=== PATIENT | male | born 1990 | race Caucasian/White ===

== ENCOUNTER 2020-06-29 09:53 | Emergency (ER) | payer BC, SELFPAY ==
--- NOTE | 2020-06-29 09:58 | ED.GENADULT ---
HPI - General Adult General Chief complaint: Skin/Abscess/Foreign Body Stated complaint: Rash Time Seen by Provider: 06/29/20 09:58 Source: patient Mode of arrival: ambulatory Limitations: no limitations History of Present Illness HPI narrative: 29-year-old male patient presents to the [facility] with complaints of a rash for the past month. Patient states he has a round area to the head that is slightly itchy and sore. Patient also has various surgical areas noted to bilateral arms, abdomen, right flank and bilateral ankles. Patient states he does have a dog that he sleeps with. Patient does admit to heroin IV use and last used about 2 weeks ago. Patient denies fevers, body aches or chills. Denies chest pain or shortness of breath that he is aware of. Denies using any type of [id number] ointments for the rash. Related Data Allergies Allergy/AdvReac Type Severity Reaction Status Date / Time No Known Allergies Allergy Unverified 10/28/14 14:10 Review of Systems Review of Systems: Narrative: CONSTITUTIONAL: Denies fever, chills, or sweats. EYES: Denies visual changes, redness, or discharge. ENT: Denies rhinorrhea, congestion, sore throat, or otalgia. CARDIOVASCULAR: Denies chest pain, palpitations, or edema. RESPIRATORY: Denies cough or dyspnea. GASTROINTESTINAL: Denies abdominal pain, nausea, vomiting, or diarrhea. GENITOURINARY: Denies dysuria or hematuria. SKIN: Positive rash with itching to scalp, bilateral arms, right flank, trunk and bilateral lower extremities x1 month MUSCULOSKELETAL: Denies back pain, joint pain, or myalgia. NEUROLOGIC: Denies headache, numbness, or weakness. PSYCHIATRIC: Denies anxiety or depression. [facility] Past Medical History Medical History (Updated 06/29/20 @ 10:39 by BERTRAND Noriega) Opioid use Substance abuse IV heroin Comments At the time of my signature I agree with nursing past medical history, surgical, social, and family history. There is no relevant family history pertinent to the presenting complaint. Exam Narrative: Exam Narrative: GENERAL: Well-appearing, well-nourished, and in no acute distress. HEAD: Normocephalic, atraumatic. EYES: PERRLA and EOMI. ENT: Nares clear, no rhinorrhea or epistaxis. Mucous membranes moist. NECK: Supple. No lymphadenopathy CHEST: Clear to auscultation. No respiratory distress. HEART: Regular rate and rhythm. No murmur heard. Normal peripheral pulses. ABDOMEN: Soft, nontender, nondistended, normal active bowel sounds. EXTREMITIES: Normal range of motion. No edema. SKIN: Warm, dry, patient has a circular erythemic rash with clearing in the middle to the right parietal area. There is no open wounds or discharge. Patient also has several other circular erythemic areas to various parts of the body some are scabbed over looks like they have been picked that. No discharge present. NEURO: No focal deficits. Alert and oriented x3. Course Vital Signs Vital signs: Vital Signs Temperature 35.8 C L 06/29/20 10:08 Pulse Rate 92 06/29/20 10:08 Respiratory Rate 16 06/29/20 10:08 Blood Pressure 126/75 06/29/20 10:08 Pulse Oximetry 99 06/29/20 10:08 Temperature 35.8 C L 06/29/20 10:08 Pulse Rate 92 06/29/20 10:08 Respiratory Rate 16 06/29/20 10:08 Blood Pressure 126/75 06/29/20 10:08 Pulse Oximetry 99 06/29/20 10:08 Vital signs reviewed Medical Decision Making Differential Diagnosis Differential Diagnosis: Differential diagnosis: Contact dermatitis, poison mayo, poison sumac, psoriasis, eczema, allergic reaction, drug reaction, scabies, tinea syphilis, lung disease, viral exanthema, pityriasis, erythema multiforme. Discussed with patient that we are going to go ahead and treat him for a fungal infection today as well as a possible staph infection because it does appear that some of the areas could be infected. Discussed with patient that we will give him an oral antifungal and an antifungal shampoo for the fu
[2020-06-29 10:08] VITALS: BP 126/75; PULSE 92; RESP 16; TEMP 35.8; O2SAT 99
== END 2020-06-29 10:45 | disposition home or self-care (01) ==
PROVIDERS: Emergency Provider Nurse Practitioner Family
DX: B35.0 Tinea barbae and tinea capitis (principal); B35.4 Tinea corporis
CPT/HCPCS: 99213; G0463

== ENCOUNTER 2021-03-07 19:51 | Emergency (ER) | payer BC, SELFPAY ==
--- NOTE | 2021-03-07 20:23 | ED.URI ---
HPI - URI/Sore Throat General Chief Complaint: Upper Respiratory Infection Stated Complaint: cough Time Seen by Provider: 03/07/21 20:17 Source: patient and RN notes reviewed Mode of arrival: ambulatory Limitations: no limitations History of Present Illness HPI Narrative: Patient presents today complaining of a 2-day history of productive cough, rhinorrhea, congestion, headache, sore throat, with occasional duration. He currently rates his sore throat 6/10 and has tried no medication for symptoms prior to arrival. No history of asthma or COPD. Patient does smoke. He has not been vaccinated against influenza or COVID-19. MD elicited complaint: cough and sore throat Related Data Home Medications Medication Instructions Recorded Confirmed No Home Medications 03/07/21 03/07/21 Allergies Allergy/AdvReac Type Severity Reaction Status Date / Time No Known Allergies Allergy Verified 03/07/21 20:16 Review of Systems Review of Systems: CONSTITUTIONAL: Denies body aches, fever, chills, or sweats. EYES: Denies visual changes, redness, or discharge. ENT: Denies otalgia.+ Rhinorrhea, congestion, sore throat CARDIOVASCULAR: Denies chest pain, palpitations, or edema. RESPIRATORY: + Cough, occasional shortness of breath GASTROINTESTINAL: Denies abdominal pain, nausea, vomiting, or diarrhea. GENITOURINARY: Denies dysuria or hematuria. SKIN: Denies rash, itching, or wounds. MUSCULOSKELETAL: Denies back pain, joint pain, or myalgia. NEUROLOGIC: Denies numbness, tingling, or weakness.+ Headache PSYCH: Denies depression or anxiety. [facility] Past Medical History Medical History Opioid use Substance abuse IV heroin Comments At time of signature, I have reviewed and agree with nursing past medical, surgical, social and family history unless otherwise noted. Please see nursing chart for further information. There is no relevant family history pertinent to the presenting complaint Exam Narrative: GENERAL: Well-appearing, well-nourished, and in no acute distress. HEAD: Normocephalic, atraumatic. EYES: EOMI. No redness or drainage. Conjunctivae normal. ENT: Mucous membranes pink and moist. Nares clear. No rhinorrhea. TMs normal bilaterally. Throat erythematous without edema or exudate. Uvula midline. NECK: Normal AROM. Supple. No lymphadenopathy. CHEST: No respiratory distress. Clear to auscultation. HEART: Regular rate and rhythm. No murmur appreciated. Normal peripheral pulses. EXTREMITIES: Normal range of motion. No edema. SKIN: Warm, dry, no rash. Capillary refill normal. Normal skin turgor. NEURO: No focal deficits. Alert and oriented x3. Gait steady. PSYCH: Normal affect. No signs of depression or anxiety. Course Vital Signs Vital signs: Vital Signs Temperature 97.4 F L 03/07/21 20:24 Pulse Rate 99 03/07/21 20:24 Respiratory Rate 16 03/07/21 20:24 Blood Pressure 128/77 03/07/21 20:24 Pulse Oximetry 98 03/07/21 20:24 Temperature 97.4 F L 03/07/21 20:24 Pulse Rate 99 03/07/21 20:24 Respiratory Rate 16 03/07/21 20:24 Blood Pressure 128/77 03/07/21 20:24 Pulse Oximetry 98 03/07/21 20:24 Reviewed. Pt has been instructed to follow up with her PCP regarding her elevated blood pressure today. MDM - URI/Sore Throat Differential Diagnosis Differential diagnosis: Likely upper respiratory infection, viral infection, bronchitis, pharyngitis and other (Strep throat) Lab Data Attestation: I reviewed the patient's lab results. Labs: Strep Screen Presumptive Negative *(Reference Range: Negative)* Critical Care Time Critical Care Time Critical Care Time: No Discharge Plan Discharge Clinical Impression: Bronchitis Upper respiratory infection Qualifiers: URI type: unspecified URI Qualified Code(s): J06.9 - Acute upper respiratory infection, unspecified Pat
[2021-03-07 20:24] VITALS: BP 128/77; PULSE 99; RESP 16; TEMP 36.3; O2SAT 98
== END 2021-03-07 20:47 | disposition home or self-care (01) ==
PROVIDERS: Emergency Provider Nurse Practitioner
DX: J40 Bronchitis, not specified as acute or chronic (principal); J06.9 Acute upper respiratory infection, unspecified
CPT/HCPCS: 87081; 87880; 99213; G0463